=== PATIENT | male | born 1930 | race African-American/Black ===

== ENCOUNTER 2020-06-24 08:17 | Emergency (ER) | payer MEDICARE, OTHER ==
[~2020-06-24] VITALS: Ht 177.8 cm; Wt 81.0 kg
[2020-06-24 08:20] VITALS: BP 113/61
--- NOTE | 2020-06-24 08:23 | PHYS DOC ---
Past History Past Medical History: Bipolar, CAD, Constipation, High Cholesterol, Schizophrenia Past Surgical History: Pacemaker Smoking: Non-smoker Alcohol Use: None Drug Use: None General Adult EDM: Chief Complaint: DIARRHEA HPI: HPI: Patient is a 89 year old male who presents with nausea, vomiting, and diarrhea. Patient reports that symptoms began this morning and arrived to ED via EMS. Describes pain as generalized abdominal pain, that is slightly worse on left side. Characterizes pain as achy that is worse with movement. States that lying down and resting improves symptoms. No radiation of pain. He has a dry tongue. Says that his last bowel movement was this morning. Denies blood or mucous in his stool. Additionally reports vomiting that began this morning that resembles food, without blood. He last ate a meal last night--which he described as a small non-heavy meal. He reports getting two doses of COVID vaccine approximately one month ago. He complains of back pain which is chronic and has a pressure ulcer on his backside. He reports no other symptoms or complaints at this time. Review of Systems: Review of Systems: Constitutional: Denies fever or chills HENT: Denies nasal congestion or sore throat Respiratory: Denies cough or shortness of breath Cardiovascular: Denies chest pain or palpitations GI: Reports abdominal pain, nausea, and vomiting Musculoskeletal: Reports back pain. Denies joint pain Integument: Denies rash. Reports posterior skin lesion Neurologic: Denies headache, focal weakness or sensory changes Complete systems were reviewed and found to be within normal limits, except as documented in this note. Allergies: Allergies: Clonzaepam, Divalproex sodium, Gemfibrozil, Letcher, Olanzapine Physical Exam: PE: Constitutional: Well developed, well nourished, no acute distress, non-toxic appearance HENT: Normocephalic, atraumatic Eyes: PERRL, EOMI, conjunctiva normal, no discharge Neck: Normal range of motion, no tenderness, supple Lungs & Thorax: No respiratory distress, equal chest rise and fall Abdomen: Soft, mild abdominal tenderness to palpation Skin: Warm, dry, no erythema, no rash. Back: Back tenderness, posterior pressure ulcer noted Extremities: No tenderness, ROM intact, no edema Neurologic: Alert and oriented X 3, normal motor function, normal sensory function, no focal deficits noted Psychologic: Affect normal, judgment normal EKG: EKG: @ 0854 Normal sinus rhythm, wide QRS complex at 156 ms. No STEMI. Nonspecific T wave inversion V2-V4, I, aVL. QT/QTc 448/467 ms. Incomplete right bundle branch block. Radiology/Procedures: Radiology/Procedures: PROCEDURE: CT ABD PELV W/ IV CONTRST ONLY EXAM: Abdomen and pelvis CT with intravenous contrast. HISTORY: Pain. TECHNIQUE: Computed tomographic images of the abdomen and pelvis were obtained following the administration of intravenous contrast. Multiplanar reformatting was performed. *One or more of the following individualized dose reduction techniques were utilized for this examination: 1. Automated exposure control. 2. Adjustment of the mA and/or kV according to patient size. 3. Use of iterative reconstruction technique. COMPARISON: 07/14/2014. FINDINGS: Evaluation of the lower thorax demonstrates groundglass opacity within the bilateral lower lobes likely due to atelectasis. No consolidated infiltrate is seen. There is cardiomegaly. There is a small pericardial effusion. There are cardiac pacemaker leads. There is calcification along the left ventricular apex likely due to prior infarction. There is incidental gynecomastia. There is biliary ductal dilatation extending to the ampulla. There is a tiny calcification within the pancreatic head near the ampulla which appears to be ex traluminal and likely due to the sequela of chronic pancreatitis rather than a common bile duct stone. There is a tiny cyst within the right hepatic lobe. There is slight hyperdensity along the posterior wall of the gallbladder which is likely artifactual rather than due to layering stones. The spleen is mildly enlarged. The adrenal glands are unremarkable. The stomach is unremarkable. There is renal atrophy. There are multiple renal cysts. The largest of these measures 3.6 cm on the left. There is a 2.1 cm hypodense lesion within the lateral lower mid zone of the left kidney which may be a complicated cyst. There is slight lobulation along the inferior pole of the left kidney measuring 3.1 cm, best seen on coronal images and possibly due to adjacent cortical scarring or a solid lesion. There is a similar-appearing solid-appearing lesion within the mid zone of the right kidney measuring 4.9 cm. There is a 3 mm nonobstructing left renal stone. There is no hydronephrosis. There is urinary bladder wall thickening. The prostate is mildly enlarged. There is no appendicitis. There is no bowel obstruction. There is mild thickening of the for rectal wall which may be due to relative under distention. There is no surrounding stranding to suggest proctitis. There is degenerative change throughout the spine and bony pelvis. There is no suspicious or acute osseous finding. There are few benign osseous hemangiomas. IMPRESSION: 1. Intrahepatic and extra hepatic biliary ductal dilatation. There is a punctate calcification within the pancreas along the course of the common bile duct which is likely extraluminal rather than due to choledocholithiasis. MRCP may be useful if there is concern for an occult obstructing etiology. 2. Solid-appearing masses measuring 4.9 cm within the mid zone of the right kidney and 3.1 cm within the lower pole the left kidney, increased compared to the prior study and most conspicuous on coronal images. Renal sonography or a renal protocol CT or MRI can be performed for better characterization. These lesions are superimposed on multiple renal cysts, would which within the left kidney demonstrates attenuation greater than fluid and is likely a complicated cyst. 3. No obstructing left renal stone. There is no hydronephrosis. 4. Bladder wall thickening. This may be due to cystitis or chronic outlet obstruction given the presence of a prominent prostate. 5. Cardiomegaly and small pericardial effusion. 6. Mild splenomegaly. 7. Tiny hepatic cyst. Electronically signed by: Mere Tim MD (06/24/2020 10:02 AM) [id number] Heart Score: C/O Chest Pain: N/A Course & Med Decision Making: Course & Med Decision Making Pertinent Labs and Imaging studies reviewed. (See chart for details) Patient's was administered symptomatic treatment and IVF with intermittent improvement of symptoms. CT-abdomen was performed which was non-concerning for acute process. EKG and troponin level findings are non-concerning for acute cardiac complications in the patient. He has thrombocytopenia without anemia. His kidney function is intact with his GFR and BUN/Cr ratio within normal limits, and mild elevation of creatinine. Patient's lactic acid was 1.6 (within normal limits) which makes diagnosis of mesenteric ischemia unlikely. Patient was hemodynamically stable during ED visit. He was discharged back to long term with Zofran to use for future nausea/vomiting episodes. Dragon Disclaimer: Dragon Disclaimer: This electronic medical record was generated, in whole or in part, using a voice recognition dictation system. Departure Departure: Impression: Primary Impression: Nausea & vomiting Qualified Codes: R11.2 - Nausea with vomiting, unspecified Disposition: 01 DC HOME SELF CARE/HOMELESS Condition: STABLE Patient Instructions: Clear Liquid Diet, [id number], Nausea and Vomiting, E asy-to-Read Scripts Ondansetron (ONDANSETRON ODT) 4 Mg Tab.rapdis 1 TAB PO PRN Q6-8HRS for NAUSEA, #16 TAB Prov: BEVERLY CALLEJAS DO 06/24/20 BEVERLY CALLEJAS DO Jun 24, 2020 08:23
[2020-06-24] MEDS ORDERED: CONTRAST GIVEN. MC PRN (09:00)
[2020-06-24 09:05] LABS: BASO % 0 % (0-3); EOS # 0.2 x10^3/uL (0.0-0.7); EOS % 2 % (0-3); HEMATOCRIT 42.4 % (39.0-53.0); HEMOGLOBIN 13.3 g/dL (13.0-17.5); LYMPH # 0.1 x10^3/uL (1.0-4.8); LYMPH % 1 % (24-48); MEAN CORPUSCULAR HEMOGLOBIN 24 pg (25-35); MEAN CORPUSCULAR HGB CONC 31 g/dL (31-37); MEAN CORPUSCULAR VOLUME 78 fL (79-100); MONO # 0.3 x10^3/uL (0.0-1.1); MONO % 5 % (0-9); NEUT # 5.8 x10^3uL (1.8-7.7); NEUT % 91 % (31-73); PLATELET COUNT 71 x10^3/uL (140-400); RED BLOOD COUNT 5.47 x10^6/uL (4.30-5.70); RED CELL DISTRIBUTION WIDTH 17.2 % (11.5-14.5); WHITE BLOOD COUNT 6.3 x10^3/uL (4.0-11.0)
--- NOTE | 2020-06-24 09:11 | EKG ---
[address] [address] Test Date: 2020-06-24 Test Time: 08:54:04 Pat Name: DESTINEE MARR Department: Room: Gender: M [employer] Sales Agent: Ariel : [id number] Requested By: BEVERLY CALLEJAS Order Number: [id number] Reading MD: Measurements Intervals [place] Rate: 65 P: 26 NM: 208 QRS: -71 QRSD: 156 T: -52 QT: 448 QTc: 467 Interpretive Statements SINUS RHYTHM ABNORMAL LEFT AXIS DEVIATION NON SPECIFIC INTRAVENTRICULAR BLOCK QRS(T) CONTOUR ABNORMALITY CONSISTENT WITH ANTERIOR INFARCT AGE UNDETERMINED CONSISTENT WITH INFERIOR INFARCT PROBABLY OLD ABNORMAL ECG RI6.02 No previous ECG available for comparison
[2020-06-24 09:21] LABS: ANION GAP 11 (6-14); BLOOD UREA NITROGEN 25 mg/dL (8-26); BUN/CREATININE RATIO 18 (6-20); CALCIUM 8.5 mg/dL (8.5-10.1); CARBON DIOXIDE 24 mmol/L (21-32); CHLORIDE 111 mmol/L (98-107); CREATININE 1.4 mg/dL (0.7-1.3); GFR 57.7; GLUCOSE 106 mg/dL (70-99); POTASSIUM 4.2 mmol/L (3.5-5.1); SODIUM 146 mmol/L (136-145)
[2020-06-24] MEDS: IV NORMAL SALINE 1,000ML 1,000 ML IV ONE (09:21)
[2020-06-24] MEDS: ONDANSETRON PF 4 MG/2 ML VIAL. IVP ONE (09:22)
[2020-06-24] MEDS: FAMOTIDINE 20 MG/2 ML VIAL IVP ONE (09:27)
[2020-06-24] MEDS: IOHEXOL 300 MG/ML 75 ML VIAL. IV ONE (09:38)
[2020-06-24 09:42] LABS: ALBUMIN 2.9 g/dL (3.4-5.0); ALBUMIN/GLOBULIN RATIO 0.9 (1.0-1.7); ALK PHOS 75 U/L (46-116); ALT (SGPT) 17 U/L (16-63); AST (SGOT) 12 U/L (15-37); LIPASE 172 U/L (73-393); MAGNESIUM 1.9 mg/dL (1.8-2.4); TOTAL BILIRUBIN 0.4 mg/dL (0.2-1.0); TOTAL PROTEIN 6.2 g/dL (6.4-8.2)
--- NOTE | 2020-06-24 10:05 | RAD ---
EXAM: Abdomen and pelvis CT with intravenous contrast. HISTORY: Pain. TECHNIQUE: Computed tomographic images of the abdomen and pelvis were obtained following the administ ration of intravenous contrast. Multiplanar reformatting was performed. *One or more of the following individualized dose reduction techniques were utilized for this examina tion: 1. Automated exposure control. 2. Adjustment of the mA and/or kV according to patient size. 3. Use of iterative reconstruction technique. COMPARISON: 07/14/2014. FINDINGS: Evaluation of the lower thorax demonstrates groundglass opacity within the bilateral lower lobes likely due to atelectasis. No consolidated infiltrate is seen. There is cardiomegaly. There is a small pericardial effusion. There are cardiac pacemaker leads. There is calcification along the lef t ventricular apex likely due to prior infarction. There is incidental gynecomastia. There is biliary ductal dilatation extending to the ampulla. There is a tiny calcification within the pancreatic head near the ampulla which appears to be extraluminal and likely due to the sequela of c hronic pancreatitis rather than a common bile duct stone. There is a tiny cyst within the right hepat ic lobe. There is slight hyperdensity along the posterior wall of the gallbladder which is likely art ifactual rather than due to layering stones. The spleen is mildly enlarged. The adrenal glands are un remarkable. The stomach is unremarkable. There is renal atrophy. There are multiple renal cysts. The largest of these measures 3.6 cm on the l eft. There is a 2.1 cm hypodense lesion within the lateral lower mid zone of the left kidney which ma y be a complicated cyst. There is slight lobulation along the inferior pole of the left kidney measur ing 3.1 cm, best seen on coronal images and possibly due to adjacent cortical scarring or a solid les ion. There is a similar-appearing solid-appearing lesion within the mid zone of the right kidney madhavi uring 4.9 cm. There is a 3 mm nonobstructing left renal stone. There is no hydronephrosis. There is u rinary bladder wall thickening. The prostate is mildly enlarged. There is no appendicitis. There is no bowel obstruction. There is mild thickening of the for rectal w all which may be due to relative under distention. There is no surrounding stranding to suggest proct itis. There is degenerative change throughout the spine and bony pelvis. There is no suspicious or ac jeanine osseous finding. There are few benign osseous hemangiomas. IMPRESSION: 1. Intrahepatic and extra hepatic biliary ductal dilatation. There is a punctate calcification within the pancreas along the course of the common bile duct which is likely extraluminal rather than due t o choledocholithiasis. MRCP may be useful if there is concern for an occult obstructing etiology. 2. Solid-appearing masses measuring 4.9 cm within the mid zone of the right kidney and 3.1 cm within the lower pole the left kidney, increased compared to the prior study and most conspicuous on coronal images. Renal sonography or a renal protocol CT or MRI can be performed for better characterization. These lesions are superimposed on multiple renal cysts, would which within the left kidney demonstra marisol attenuation greater than fluid and is likely a complicated cyst. 3. No obstructing left renal stone. There is no hydronephrosis. 4. Bladder wall thickening. This may be due to cystitis or chronic outlet obstruction given the prese nce of a prominent prostate. 5. Cardiomegaly and small pericardial effusion. 6. Mild splenomegaly. 7. Tiny hepatic cyst. Electronically signed by: Mere Tim MD (06/24/2020 10:02 AM) [id number]
[2020-06-24 11:01] LABS: BACTERIA,URINE FEW /HPF (0-FEW); BILIRUBIN,URINE NEG (NEG); CLARITY,URINE HAZY; COLOR,URINE YELLOW; GLUCOSE,URINE NEG (NEG); NITRITE,URINE NEG (NEG); RBC,URINE OCC /HPF (0-2); SQUAMOUS EPITHELIAL CELL,UR MANY /LPF; UROBILINOGEN,URINE 0.2 mg/dL (0.2 mg/dL)
[2020-06-24] MEDS ORDERED: ONDA4TAB12 PO (11:50)
== END 2020-06-24 12:45 | disposition short-term general hospital (02) ==
LOC: ER 08:17
DX: R11.2 Nausea with vomiting, unspecified (principal); R19.7 Diarrhea, unspecified; R10.84 Generalized abdominal pain; F31.9 Bipolar disorder, unspecified; I25.10 Atherosclerotic heart disease of native coronary artery without angina pectoris; E78.00 Pure hypercholesterolemia, unspecified; F20.9 Schizophrenia, unspecified; Z95.0 Presence of cardiac pacemaker
CPT/HCPCS: 36415; 74177; 80053; 81001; 82553; 83605; 83690; 83735; 84484; 85025; 85610; 85730; 93005; 96361; 96374; 96375; 99285; J2405; J3490; J7030; Q9967

== ENCOUNTER 2020-06-28 14:08 | Emergency (ER) | payer OTHER ==
[~2020-06-28] VITALS: Ht 177.8 cm; Wt 81.0 kg
[~2020-06-28 14:08] MED LIST: ONDA4TAB12 PO
[2020-06-28] MEDS ORDERED: ONDANSETRON PF 4 MG/2 ML VIAL. IVP ONE (14:45)
[2020-06-28 15:38] LABS: BASO % 1 % (0-3); EOS # 0.2 x10^3/uL (0.0-0.7); EOS % 4 % (0-3); HEMATOCRIT 37.2 % (39.0-53.0); HEMOGLOBIN 11.8 g/dL (13.0-17.5); LYMPH # 0.8 x10^3/uL (1.0-4.8); LYMPH % 17 % (24-48); MEAN CORPUSCULAR HEMOGLOBIN 24 pg (25-35); MEAN CORPUSCULAR HGB CONC 32 g/dL (31-37); MEAN CORPUSCULAR VOLUME 76 fL (79-100); MONO # 0.4 x10^3/uL (0.0-1.1); MONO % 8 % (0-9); NEUT # 3.1 x10^3uL (1.8-7.7); NEUT % 69 % (31-73); PLATELET COUNT 86 x10^3/uL (140-400); RED BLOOD COUNT 4.88 x10^6/uL (4.30-5.70); RED CELL DISTRIBUTION WIDTH 17.2 % (11.5-14.5); WHITE BLOOD COUNT 4.5 x10^3/uL (4.0-11.0)
[2020-06-28 15:40] LABS: CALCIUM 8.4 mg/dL (8.5-10.1); CREATININE 1.4 mg/dL (0.7-1.3); GFR 57.7; POTASSIUM 3.3 mmol/L (3.5-5.1)
[2020-06-28 15:46] LABS: ALBUMIN 2.6 g/dL (3.4-5.0); ALBUMIN/GLOBULIN RATIO 0.8 (1.0-1.7); TOTAL BILIRUBIN 0.2 mg/dL (0.2-1.0); TOTAL PROTEIN 5.7 g/dL (6.4-8.2)
[2020-06-28 17:53] LABS: BILIRUBIN,URINE NEG (NEG); CLARITY,URINE CLEAR; COLOR,URINE YELLOW; GLUCOSE,URINE NEG (NEG)
[2020-06-28 17:54] LABS: BACTERIA,URINE 0 /HPF (0-FEW); NITRITE,URINE NEG (NEG); RBC,URINE RARE /HPF (0-2); UROBILINOGEN,URINE 0.2 mg/dL (0.2 mg/dL); WBC,URINE 0 /HPF (0-4)
--- NOTE | 2020-06-28 18:36 | PHYS DOC ---
Past History Past Medical History: Bipolar, CAD, Constipation, High Cholesterol, Schizophrenia Additional Past Medical Histor: DYSPHAGIA, MUSCLE WEAKNESS, ONCHYLOSIS, INCONTINENCE (BEVERLY KIM APRN) Past Surgical History: Pacemaker (BEVERLY KIM APRN) Smoking: Non-smoker Alcohol Use: None Drug Use: None (BEVERLY KIM APRN) Adult General Chief Complaint Chief Complaint: NAUSEA/VOMITING/DIARRHEA HPI HPI Patient is a 89-year-old male presents to the emergency department without chief complaint. Patient was brought here by EMS. EMS life sciences director states they were called to transfer him here to this facility for complaints of nausea vomiting and diarrhea for the past week from a local usp "[facility] "there was no usp report given to emergency room staff. He arrived with patient. Patient denies physical complaints or physical concerns at this time. Patient denies fever chills, denies chest pain, denies shortness of breath, denies aches or pains to his body, denies abdominal pain, denies nausea, denies vomiting, denies diarrhea. Patient states he does not know why he is here. HPI Per usp transfer form, shows patient has history of CAD, dysphagia, hyperlipidemia, muscle weakness, cardiac pacemaker, hearing loss, chronic constipation, essential hypertension, low back pain, onycholysis, schizoaffective disorder, bipolar, urinary incontinence. Patient has allergy to clonazepam, gemfibrozil, lithium, olanzapine, Depakote. (BEVERLY KIM APRN) Review of Systems Review of Systems 14 body systems of review of systems have been reviewed. See HPI for pertinent positives and negative responses, otherwise all other systems are negative, nonpertinent or noncontributory. (BEVERLY KIM APRN) Current Medications Current Medications Current Medications Medications (Trade) Dose Ordered Sig/Pavel Start Time Stop Time Status Last Admin Dose Admin Ondansetron HCl (Zofran) 4 mg 1X ONCE 06/28/20 14:45 06/28/20 14:51 DC 06/28/20 16:32 4 MG (BEVERLY KIM APRN) Allergies Allergies Allergies Coded Allergies Type Severity Reaction Last Updated Verified clonazepam Allergy Unknown 06/24/20 Yes divalproex sodium Allergy Unknown 06/24/20 Yes gemfibrozil Allergy Unknown 06/24/20 Yes lithium Allergy Unknown 06/24/20 Yes olanzapine Allergy Unknown 06/24/20 Yes (BEVERLY KIM APRN) Physical Exam Physical Exam Constitutional: Well developed, well nourished, no acute distress, non-toxic appearance. 89-year-old male in no apparent distress. HENT: Normocephalic, atraumatic, bilateral external ears normal, oropharynx moist, no oral exudates, nose normal. Eyes: PERRLA, EOMI, conjunctiva normal, no discharge. Neck: Normal range of motion, no tenderness, supple, no stridor. Cardiovascular:Heart rate regular rhythm, heart sounds normal consultation. Lungs & Thorax: Bilateral breath sounds clear to auscultation all lung tapia. Abdomen: Bowel sounds normal, soft, no tenderness, no masses, no pulsatile masses. Skin: Warm, dry, no erythema, no rash. Back: No tenderness, no CVA tenderness. Extremities: No tenderness, no cyanosis, no clubbing, ROM intact, no edema. Neurologic: Alert and oriented X x1, oriented to self only, normal motor function, normal sensory function, no focal deficits noted. Psychologic: Affect normal, judgement normal, mood normal. (BEVERLY KIM APRN) Current Patient Data Vital Signs Vital Signs Date Time Temp Pulse Resp B/P (MAP) Pulse Ox O2 Delivery O2 Flow Rate FiO2 06/28/20 14:17 98.7 61 132/58 (82) 100 Room Air Lab Results Laboratory Tests Test 06/28/20 14:55 06/28/20 17:15 White Blood Count 4.5 x10^3/uL Red Blood Count 4.88 x10^6/uL Hemoglobin 11.8 g/dL Hematocrit 37.2 % Mean Corpuscular Volume 76 fL Mean Corpuscular Hemoglobin 24 pg Mean Corpuscular Hemoglobin Concent 32 g/dL Red Cell Distribution Width 17.2 % Platelet Count 86 x10^3/uL Neutrophils (%) (Auto) 69 % Lymphocytes (%) (Auto) 17 % Monocytes (%) (Auto) 8 % Eosinophils (%) (Auto) 4 % Basophils (%) (Auto) 1 % Neutrophils # (Auto) 3.1 x10^3uL Lymphocytes # (Auto) 0.8 x10^3/uL Monocytes # (Auto) 0.4 x10^3/uL Eosinophils # (Auto) 0.2 x10^3/uL Basophils # (Auto) 0.0 x10^3/uL Sodium Level 146 mmol/L Potassium Level 3.3 mmol/L Chloride Level 112 mmol/L Carbon Dioxide Level 24 mmol/L Anion Gap 10 Blood Urea Nitrogen 18 mg/dL Creatinine 1.4 mg/dL Estimated GFR (Cockcroft-Gault) 57.7 BUN/Creatinine Ratio 13 Glucose Level 97 mg/dL Calcium Level 8.4 mg/dL Total Bilirubin 0.2 mg/dL Aspartate Amino Transf (AST/SGOT) 17 U/L Alanine Aminotransferase (ALT/SGPT) 22 U/L Alkaline Phosphatase 88 U/L Total Protein 5.7 g/dL Albumin 2.6 g/dL Albumin/Globulin Ratio 0.8 Lipase 160 U/L Urine Collection Type Unknown Urine Color Yellow Urine Clarity Clear Urine pH 6.0 Urine Specific [place] 1.010 Urine Protein Neg Urine Glucose (UA) Neg mg/dL Urine Ketones (Stick) Neg mg/dL Urine Blood Neg Urine Nitrite Neg Urine Bilirubin Neg Urine Urobilinogen Dipstick 0.2 mg/dL Urine Leukocyte Esterase Neg Urine RBC Rare /HPF Urine WBC 0 /HPF Urine Squamous Epithelial Cells None /LPF Urine Bacteria 0 /HPF Current Medications Medications (Trade) Dose Ordered Sig/Pavel Route PRN Reason Start Time Stop Time Status Last Admin Dose Admin Ondansetron HCl (Zofran) 4 mg 1X ONCE IVP 06/28/20 14:45 06/28/20 14:51 DC 06/28/20 16:32 4 MG Laboratory Tests Test 06/28/20 14:55 06/28/20 17:15 White Blood Count 4.5 x10^3/uL (4.0-11.0) Red Blood Count 4.88 x10^6/uL (4.30-5.70) Hemoglobin 11.8 g/dL (13.0-17.5) L Hematocrit 37.2 % (39.0-53.0) L Mean Corpuscular Volume 76 fL (79-100) L Mean Corpuscular Hemoglobin 24 pg (25-35) L Mean Corpuscular Hemoglobin Concent 32 g/dL (31-37) Red Cell Distribution Width 17.2 % (11.5-14.5) H Platelet Count 86 x10^3/uL (140-400) L Neutrophils (%) (Auto) 69 % (31-73) Lymphocytes (%) (Auto) 17 % (24-48) L Monocytes (%) (Auto) 8 % (0-9) Eosinophils (%) (Auto) 4 % (0-3) H Basophils (%) (Auto) 1 % (0-3) Neutrophils # (Auto) 3.1 x10^3uL (1.8-7.7) Lymphocytes # (Auto) 0.8 x10^3/uL (1.0-4.8) L Monocytes # (Auto) 0.4 x10^3/uL (0.0-1.1) Eosinophils # (Auto) 0.2 x10^3/uL (0.0-0.7) Basophils # (Auto) 0.0 x10^3/uL (0.0-0.2) Sodium Level 146 mmol/L (136-145) H Potassium Level 3.3 mmol/L (3.5-5.1) L Chloride Level 112 mmol/L (98-107) H Carbon Dioxide Level 24 mmol/L (21-32) Anion Gap 10 (6-14) Blood Urea Nitrogen 18 mg/dL (8-26) Creatinine 1.4 mg/dL (0.7-1.3) H Estimated GFR (Cockcroft-Gault) 57.7 BUN/Creatinine Ratio 13 (6-20) Glucose Level 97 mg/dL (70-99) Calcium Level 8.4 mg/dL (8.5-10.1) L Total Bilirubin 0.2 mg/dL (0.2-1.0) Aspartate Amino Transferase (AST) 17 U/L (15-37) Alanine Aminotransferase (ALT) 22 U/L (16-63) Alkaline Phosphatase 88 U/L (46-116) Total Protein 5.7 g/dL (6.4-8.2) L Albumin 2.6 g/dL (3.4-5.0) L Albumin/Globulin Ratio 0.8 (1.0-1.7) L Lipase 160 U/L (73-393) Urine Collection Type Unknown Urine Color Yellow Urine Clarity Clear Urine pH 6.0 Urine Specific [place] 1.010 Urine Protein Neg (NEG-TRACE) Urine Glucose (UA) Neg mg/dL (NEG) Urine Ketones (Stick) Neg mg/dL (NEG) Urine Blood Neg (NEG) Urine Nitrite Neg (NEG) Urine Bilirubin Neg (NEG) Urine Urobilinogen Dipstick 0.2 mg/dL (0.2 mg/dL) Urine Leukocyte Esterase Neg (NEG) Urine RBC Rare /HPF (0-2) Urine WBC 0 /HPF (0-4) Urine Squamous Epithelial Cells None /LPF Urine Bacteria 0 /HPF (0-FEW) (BEVERLY KIM APRN) EKG EKG [] (BEVERLY KIM APRN) Radiology/Procedures Radiology/Procedures [] (BEVERLY KIM APRN) Heart Score C/O Chest Pain: No Risk Factors: Risk Factors: DM, Current or recent (<one month) smoker, HTN, HLP, family history of CAD, obesity. Risk Scores: Risk Factors: DM, Current or recent (<one month) smoker, HTN, HLP, family history of CAD, obesity. (BEVERLY KIM APRN) Course & Med Decision Making Course & Med Decision Making Pertinent Labs and Imaging studies reviewed. (See chart for details) 89-year-old male, vital signs reviewed, presents to the emergency department via EMS for nausea vomiting diarrhea. It is unclear how long symptoms have been going on. Physical examination was unremarkable. Patient did complain of some nausea and p.o. Zofran was ordered. Basic labs along with urinalysis assay was ordered in the ED. Patient denied aches or pains or complaints of physical illness. Serum labs unremarkable except for serum potassium was 3.2, will give 20 mEq of potassium in the ED today. Patient's urine was not infected. Patient states he no longer has nausea. Discussed discharge instructions with patient, will send back to usp for ongoing usp care, ED nurse gave nurse to nurse report to usp staff. Patient was transported back to usp via EMS, diagnosis nausea resolved, hypokalemia. (BEVERLY KIM APRN) Course & Med Decision Making I oversaw care of patient while in ER and reviewed case with PICTURE FRAME [employer]KER and patient. I agree to note and plan of care as stated Electronically signed, Courtney Mast DO (COURTNEY MAST DO) Sarahi Disclaimer Dragon Disclaimer This electronic medical record was generated, in whole or in part, using a voice recognition dictation system. (BEVERLY KIM APRN) Departure Departure: Impression: Primary Impression: Hypokalemia Additional Impression: Nausea Disposition: 01 DC HOME SELF CARE/HOMELESS (back to SNF/NH) Condition: IMPROVED Referrals: AMARIS ARNETT MD (PCP) Patient Instructions: Hypokalemia Additional Instructions: You have been evaluated today in the emergency department, your lab values did not show any concerning infectious process, your potassium was a little low, I gave you a potassium supplement in the ER today. Please increase potassium rich food conception at home. You may return to the emergency department for worsening symptoms or other concerns. Please see your doctor regarding your complaints at home. EMERGENCY DEPARTMENT GENERAL DISCHARGE INSTRUCTIONS Thank you for coming to [facility] (ED) today and trusting us with you care. We trust that you had a positivie experience in our Emergency Department. If you wish to speak to the department management, you may call the director at [phone]. YOUR FOLLOW UP INSTRUCTIONS ARE FOLLOWS: 1. Do you have a private Doctor? If you do not have a private doctor, please ask for a resource list of physicians or clinics that may be able to assist you with follow up care. 2. The Emergency Physician has interpreted your x-rays. The X-Ray specialist will also review them. If there is a change in the findings, you will be notified in 48 hours when at all possible. 3. A lab test or culture has been done, your results will be reviewed and you will be notified if you need a change in treatment. ADDITIONAL INSTRUCTIONS AND INFORMATION: 1. Your care today has been supervised by a physician who is specially trained in emergency care. Many problems require more than one evaluation for a complete diagnosis and treatment. We recommend that you schedule your follow up appointment as recommended to ensure complete treatment of you illness or injury. If you are unable to obtain follow up care and continue to have a problem, or if your condition worsens, we recommend that you return to the ED. 2. We are not able to safely determine your condition over the phone nor are we able to give sound medical advice over the phone. For these safety reasons, if you call for medical advice we will ask you to come to the ED for further evaluation. 3. If you have any questions regarding these discharge instructions please call the ED at [phone]. SAFETY INFORMATION: In the interest of safety, wellness, and injury prevention; we encourage you to wear your sealbelt, if you smoke; quite smoking, and we encourage family to use a protective helmet for bicycling and other sporting events that present an increased risk for head injury. IF YOUR SYMPTOMS WORSEN OR NEW SYMPTOMS DEVELOP, OR YOU HAVE CONCERNS ABOUT YOUR CONDITION; OR IF YOUR CONDITION WORSENS WHILE YOU ARE WAITING FOR YOUR FOLLOW UP APPOINTMENT; EITHER CONTACT YOUR PRIMARY CARE DOCTOR, THE PHYSICIAN WHOSE NAME AND NUMBER YOU WERE GIVEN, OR RETURN TO THE ED IMMEDIATELY. Problem Qualifiers BEVERLY KIM APRN Jun 28, 2020 18:36 COURTNEY MAST DO Jun 29, 2020 20:01
[2020-06-28] MEDS ORDERED: POTASSIUM CHLORIDE 20 MEQ TABLET.ER. PO ONE (18:45)
[2020-06-28 19:50] VITALS: BP 106/47
== END 2020-06-28 20:09 | disposition short-term general hospital (02) ==
LOC: ER 14:08
DX: E87.6 Hypokalemia (principal); R11.2 Nausea with vomiting, unspecified; R19.7 Diarrhea, unspecified; F31.9 Bipolar disorder, unspecified; I25.10 Atherosclerotic heart disease of native coronary artery without angina pectoris; E78.00 Pure hypercholesterolemia, unspecified; F20.9 Schizophrenia, unspecified; E78.5 Hyperlipidemia, unspecified; Z95.0 Presence of cardiac pacemaker; Z88.8 Allergy status to other drugs, medicaments and biological substances
CPT/HCPCS: 36415; 80053; 81001; 83690; 85025; 96374; 99285; J2405